=== PATIENT | male | born 1975 | race Two or more races ===

== ENCOUNTER 2021-03-30 21:36 | Emergency (ER) | payer MEDICAID ==
[~2021-03-30] VITALS: Ht 172.7 cm; Wt 77.6 kg
[2021-03-30] MEDS ORDERED: IBUPROFEN 400 MG TABLET ONE (22:26)
[2021-03-30] MEDS ORDERED: IBUPROFEN 400 MG TABLET PO ONE (22:30)
[2021-03-30] MEDS ORDERED: LORAZEPAM 1 MG TABLET PO ONE (23:30)
[2021-03-30 23:53] VITALS: BP 134/78
--- NOTE | 2021-03-30 23:53 | NUR ---
Patient discharged to home in stable condition. Written and verbal after care instructions given. Patient verbalizes understanding of instruction.
== END 2021-03-30 23:55 | disposition home or self-care (01) ==
LOC: ER 21:38
DX: F41.9 Anxiety disorder, unspecified (principal); R51.9 Headache, unspecified; T50.B95A Adverse effect of other viral vaccines, initial encounter; E11.9 Type 2 diabetes mellitus without complications; Y92.89 Other specified places as the place of occurrence of the external cause